=== PATIENT | female | born 1960 | race Caucasian/White ===

== ENCOUNTER → 2024-04-28 | Day surgery (SDC) | payer MEDICARE ==
[~2024-04-28] MED LIST: CRESTOR40 MG PO; DEXAMETHASONE SOD PHOS 10 MG/1 ML VIAL ONE; HYDROCHLOROTHIA25 MG PO; LIDOCAINE 1% W/EPINEPHRINE 20 ML VIAL ONE; OMEPRAZOLE40 MG PO; ZESTRIL40 MG PO
[2024-04-28] MEDS: LACTATED RINGER'S 1,000 ML ONE (09:49)
[2024-04-28 10:30] LABS: BASOPHILS # (AUTO) 0.1 (0.0-0.1); BASOPHILS % 0.7 % (0.0-1.0); EOSINOPHILS # (AUTO) 0.2 (0.0-0.4); HEMATOCRIT 36.7 % (34.2-44.1); HEMOGLOBIN 11.2 g/dL (12.0-16.0); LYMPHOCYTES # (AUTO) 2.1 (1.0-3.2); LYMPHOCYTES % 28.4 % (18.0-39.1); MEAN CORPUSCULAR HEMOGLOBIN 27.1 pg (28-32); MEAN CORPUSCULAR HGB CONC 30.5 g/dL (31-35); MEAN CORPUSCULAR VOLUME 88.6 fL (81-99); MONOCYTES # (AUTO) 0.4 (0.2-0.8); MONOCYTES % 5.7 % (4.4-11.3); NEUTROPHILS # (AUTO) 4.6 (2.1-6.9); NEUTROPHILS % 62.8 % (38.7-80.0); PLATELET COUNT 276 x10e3/uL (140-360); RED BLOOD COUNT 4.14 x10e6/uL (3.6-5.1); RED CELL DISTRIBUTION WIDTH 13.4 % (11.7-14.4); WHITE BLOOD COUNT 7.35 x10e3/uL (4.8-10.8)
[2024-04-28 14:15] VITALS: TEMP 97.5
[2024-04-28 14:40] VITALS: BP 151/80; PULSE 61; RESP 18; O2SAT 99
== END | disposition home or self-care (01) ==
LOC: OR 05:00
PROVIDERS: ATTEND Otolaryngology Otolaryngology/Facial Plastic Surgery
DX: E04.1 Nontoxic single thyroid nodule (principal); I10 Essential (primary) hypertension; E78.5 Hyperlipidemia, unspecified; K21.9 Gastro-esophageal reflux disease without esophagitis; G89.29 Other chronic pain; Z88.1 Allergy status to other antibiotic agents; Z79.899 Other long term (current) drug therapy; Z87.891 Personal history of nicotine dependence
CPT/HCPCS: 36415; 60210; 71046; 85025; 88307; 93005; J7121; J1100